=== PATIENT | female | born 1950 | race Caucasian/White ===

== ENCOUNTER → 2018-11-13 08:56 | Outpatient (CLI) | payer MEDICARE, OTHER, BC | END | disposition home or self-care (01) | LOC: D.RT 08:56 | DX: J44.9 Chronic obstructive pulmonary disease, unspecified (principal) ==

== ENCOUNTER → 2019-04-01 14:19 | Outpatient (CLI) | payer MEDICARE, OTHER ==
[2012-07-09 18:19] VITALS: BMI 24.6
[2019-04-01 14:40] LABS: BASOPHILS 0.8 % (0-2); EOSINOPHILS 2.3 % (0-7); HEMATOCRIT 41.9 % (36.0-48.0); HEMOGLOBIN 14.3 g/dL (12-16); IMMATURE GRANULOCYTES 0.2 % (0-5); LYMPHOCYTES 18.9 % (15-50); MCH 29.5 pg (26.0-34.0); MCHC 34.1 g/dL (31.0-37.0); MCV 86.6 fL (80.0-100.0); MEAN PLATELET VOLUME 9.6 fL (7.4-10.4); NEUTROPHILS 67.8 % (40-80); RBC 4.84 10x6/uL (4.00-5.40); WBC 6.2 10x3/uL (4.8-10.8)
[2019-04-01 14:49] LABS: PLATELET COUNT 231 10x3/uL (130-400)
== END | disposition home or self-care (01) ==
LOC: D.LAB 02-09 10:00
PROVIDERS: ATTEND Internal Medicine Pulmonary Disease
DX: J45.909 Unspecified asthma, uncomplicated (principal)

== ENCOUNTER → 2020-02-23 12:00 | Outpatient (CLI) | payer MEDICARE, OTHER ==
[2012-07-09 18:19] VITALS: BMI 24.6
== END | disposition home or self-care (01) ==
LOC: D.LAB 12:00
PROVIDERS: ATTEND Internal Medicine Pulmonary Disease
DX: Z11.59 Encounter for screening for other viral diseases (principal)

== ENCOUNTER → 2020-02-25 10:44 | Outpatient (CLI) | payer MEDICARE, OTHER ==
[2012-07-09 18:19] VITALS: BMI 24.6
== END | disposition home or self-care (01) ==
LOC: D.RT 10:30
PROVIDERS: ATTEND Internal Medicine Pulmonary Disease
DX: J44.9 Chronic obstructive pulmonary disease, unspecified (principal)